=== PATIENT | female | born 1970 | race African-American/Black ===

== ENCOUNTER 2017-10-14 12:27 | Emergency (ER) | payer SELFPAY ==
[~2017-10-14] VITALS: Ht 157.5 cm; Wt 62.0 kg
[2017-10-14] MEDS ORDERED: ACETAMINOPHEN 325MG TABLET PO ONE (12:45)
[2017-10-14] MEDS ORDERED: KETOROLAC 30MG/ML VIAL IM ONE (15:00)
[2017-10-14] MEDS ORDERED: METHOCARBAMOL 500MG TABLET PO ONE (15:00)
[2017-10-14 16:35] LABS: CLARITY URINE CLEAR (CLEAR); COLOR URINE YELLOW (YELLOW); KETONES URINE NEGATIVE (NEGATIVE); LEUKOCYTE ESTERASE URINE 1+ (NEGATIVE); NITRITE URINE NEGATIVE (NEGATIVE); OCCULT BLOOD URINE 2+ (NEGATIVE); PROTEIN URINE NEGATIVE (NEGATIVE); SPECIFIC GRAVITY URINE 1.019 (1.005-1.030); UROBILINOGEN URINE 0.2 E.U./dL (0.2-1.0)
[2017-10-14 17:16] VITALS: BP 152/93
== END 2017-10-14 17:18 | disposition home or self-care (01) ==
LOC: ER 12:27
DX: M54.5 Low back pain (principal); G89.29 Other chronic pain; I10 Essential (primary) hypertension
CPT/HCPCS: 72110; 81003; 81025; 96372; 99285; J1885

== ENCOUNTER 2021-08-04 19:57 | Emergency (ER) | payer MEDICAID, OTHER ==
[~2021-08-04] VITALS: Ht 157.5 cm; Wt 62.0 kg
[2021-08-04 20:22] VITALS: BP 112/71
== END 2021-08-05 02:18 | disposition home or self-care (01) ==
LOC: ER 19:57
DX: R68.83 Chills (without fever) (principal); I10 Essential (primary) hypertension; Z98.890 Other specified postprocedural states; Z20.822 Contact with and (suspected) exposure to COVID-19
CPT/HCPCS: 87426; 87804; 99283; C9803